=== PATIENT | female | born 1970 ===

== ENCOUNTER 2021-01-25 20:37 | Emergency (ER) | payer SELFPAY ==
--- NOTE | 2021-01-25 20:58 | EDM.PDOC ---
<Hilario Landers - Last Filed: 01/26/21 00:51> ED HPI GENERAL MEDICAL PROBLEM - General Chief Complaint: Chest Pain Stated Complaint: CHEST PAINS Time Seen by Provider: 01/25/21 20:45 Source of Information: Reports: Patient History Limitations: Reports: No Limitations - History of Present Illness INITIAL COMMENTS - FREE TEXT/NARRATIVE: Patient is a 50-year-old female who presents today for shortness of breath. She was diagnosed with Covid on Sunday and states that today she became more short of breath. EMS arrived she was satting 70% on room air. They put her on 4 L and she improved to the mid 90s. Here we had on 4 L and she became hypoxic again down to the 80s she had to be placed on a nonrebreather that improved to 100%. She reports some chest pain tonight. The pain is not radiated not any worse or better with anything she denies any nausea vomiting abdominal pain. 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: Reports: IV/IO, Oxygen, Other (see below) Other 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: 324 asa, 4 mg zofran, 250 mL NS Middle Chest Pain Score (Numeric/FACES): 8 - Related Data Allergies Allergy/AdvReac Type Severity Reaction Status Date / Time No Known Allergies Allergy Verified 01/26/21 10:59 Home Meds: Home Meds ALPRAZolam [Alprazolam] 0.5 mg PO TID PRN 01/26/21 [History] Citalopram Hydrobromide [Celexa] 40 mg PO DAILY 01/26/21 [History] Zaleplon 10 mg PO BEDTIME PRN 01/26/21 [History] buPROPion HCL [Bupropion Xl] 300 mg PO DAILY 01/26/21 [History] Social & Family History - Tobacco Use Tobacco Use Status *Q: Never Tobacco User Second Hand Smoke Exposure: No - Recreational Drug Use Recreational Drug Use: No ED ROS GENERAL - Review of Systems Review Of Systems: See Below Constitutional: Reports: Fatigue HEENT: Reports: No Symptoms Respiratory: Reports: Shortness of Breath, Cough Cardiovascular: Reports: No Symptoms Endocrine: Reports: No Symptoms GI/Abdominal: Reports: No Symptoms : Reports: No Symptoms Musculoskeletal: Reports: No Symptoms Skin: Reports: No Symptoms Neurological: Reports: No Symptoms Psychiatric: Reports: No Symptoms Hematologic/Lymphatic: Reports: No Symptoms Immunologic: Reports: No Symptoms ED EXAM, GENERAL - Physical Exam Exam: See Below Exam Limited By: No Limitations General Appearance: Alert, WD/WN, No Apparent Distress Eye Exam: Bilateral Eye: EOMI, PERRL Ears: Normal External Exam Throat/Mouth: Normal Inspection Head: Atraumatic Neck: Normal Inspection Respiratory/Chest: No Respiratory Distress, Lungs Clear, Normal Breath Sounds Cardiovascular: Normal Peripheral Pulses, Regular Rate, Rhythm, No Edema Back Exam: Normal Inspection Extremities: Normal Inspection Neurological: Alert, Oriented, Normal Cognition, Normal Gait Psychiatric: Normal Affect #1 Interpretation EKG Date: 01/25/21 Time: 20:32 Rhythm: NSR Rate (Beats/Min): 90 ST-T: Normal Course - Re-Assessments/Exams Free Text/Narrative Re-Assessment/Exam: 01/26/21 00:51 CT shows no pulmonary emboli. Patient had to be placed on BiPAP but she again desatted on a nonrebreather. Again there are no beds we will continue to call all over the state as well as rest the country and no one has any beds available. Patient is being maintained well on a BiPAP sat 97%. Departure - Departure Time of Disposition: 00:52 Disposition: DC/Tfer to Acute Hospital 02 Condition: Fair Clinical Impression: Hypoxia, COVID-19 - Discharge Information Referrals: PCP,None [Primary Care Provider] - Forms: ED Department Discharge Critical Care Note - Critical Care Note Total Time (mins): 75 Comments: Critical Care Procedure Note Authorized and Performed by: Dr. Landers Total critical care time: Approximately Due to a high probability of clinically significant, life threatening deterioration, the patient required my highest level of preparedness to intervene emergently and I personally spent this critical care time directly and personally managing the patient. This critical care time included obtaining a history; examining the patient; pulse oximetry; ordering and review of studies; arranging urgent treatment with development of a management plan; evaluation of patient's response to treatment; frequent reassessment; and, discussions with other providers. This critical care time was performed to assess and manage the high probability of imminent, life-threatening deterioration that could result in multi-organ failure. It was exclusive of separately billable procedures and treating other patients and teaching time. Sepsis Event Note (ED) - Evaluation Sepsis Screening Result: No Definite Risk - Assessment/Plan Plan: Patient is a 50-year-old female brought in today for hypoxia. Patient is Covid positive found on Sunday. She had worsening symptoms. Patient was satting 70% on room air was placed on nonrebreather now satting 100%. Will obtain x-ray EKG labs. Patient will likely require admission however due to the current pandemic bed availability is limited. We have no available beds here at this hospital and we called the transfer center and there are no beds available in the state and no other states or taking any other [id number] Covid patients. Patient lillian yao remain in the ER. <Coy Brower - Last Filed: 01/26/21 18:21> Course - Vital Signs Last Recorded V/S: Last Vital Signs Temp 99.3 F 01/25/21 23:51 Pulse 104 H 01/26/21 17:10 Resp 18 01/26/21 01:34 BP 110/59 L 01/26/21 17:10 Pulse Ox 94 L 01/26/21 17:12 - Orders/Labs/Meds Orders: Active Orders 24 hr Category Date Time Status RT Aerosol Therapy [RC] ASDIRECTED Care 01/25/21 21:20 Active BILIRUBIN DIRECT [CHEM] DAILY Lab 01/27/21 07:15 Ordered BILIRUBIN DIRECT [CHEM] DAILY Lab 01/28/21 07:15 Ordered BILIRUBIN DIRECT [CHEM] DAILY Lab 01/29/21 07:15 Ordered BILIRUBIN DIRECT [CHEM] DAILY Lab 01/30/21 07:15 Ordered COMPREHENSIVE METABOLIC PN,CMP [CHEM] DAILY Lab 01/27/21 07:15 Ordered COMPREHENSIVE METABOLIC PN,CMP [CHEM] DAILY Lab 01/28/21 07:15 Ordered COMPREHENSIVE METABOLIC PN,CMP [CHEM] DAILY Lab 01/29/21 07:15 Ordered COMPREHENSIVE METABOLIC PN,CMP [CHEM] DAILY Lab 01/30/21 07:15 Ordered BiPAP [RESPCARE] Stat Oth 01/25/21 23:41 Active Labs: Laboratory Tests 01/25/21 01/25/21 01/25/21 Range/Units 20:35 20:35 20:35 WBC 4.40 (4.0-11.0) K/uL RBC 3.91 L (4.30-5.90) M/uL Hgb 12.7 (12.0-16.0) g/dL Hct 36.7 (36.0-46.0) % MCV 93.9 (80.0-98.0) fL MCH 32.5 H (27.0-32.0) pg MCHC 34.6 (31.0-37.0) g/dL RDW Std Deviation 45.2 (28.0-62.0) fl RDW Coeff of Theo 13 (11.0-15.0) % Plt Count 225 (150-400) K/uL MPV 9.90 (7.40-12.00) fL Add Manual Diff YES Neutrophils % (Manual) 68 (48.0-80.0) % Band Neutrophils % 12 % Lymphocytes % (Manual) 13 L (16.0-40.0) % Monocytes % (Manual) 5 (0.0-15.0) % Eosinophils % (Manual) 1 (0.0-7.0) % Basophils % (Manual) 1 (0.0-1.5) % Nucleated RBC % 0.0 /100WBC Absolute Seg Neuts 3.0 (1.4-5.7) Band Neutrophils # 0.5 Lymphocytes # (Manual) 0.6 (0.6-2.4) Monocytes # (Manual) 0.2 (0.0-0.8) Eosinophils # (Manual) 0.0 (0.0-0.7) Basophils # (Manual) 0.0 (0.0-0.1) Nucleated RBCs # 0 K/uL INR APTT (18.6-31.3) SEC D-Dimer, Quantitative (0.0-0.50) mg/L FEU Sodium 143 (136-145) mmol/L Potassium 3.5 (3.5-5.1) mmol/L Chloride 105 (98-107) mmol/L Carbon Dioxide 23.5 (21.0-32.0) mmol/L BUN 15 (7.0-18.0) mg/dL Creatinine 1.3 H (0.6-1.0) mg/dL Est Cr Clr Drug Dosing 53.50 mL/min Estimated GFR (MDRD) 43.2 ml/min Glucose 91 (74-106) mg/dL Lactic Acid 1.5 (0.4-2.0) mmol/L Calcium 7.6 L (8.5-10.1) mg/dL Phosphorus 3.4 (2.6-4.7) mg/dL Magnesium 1.9 (1.8-2.4) mg/dL Total Bilirubin 0.3 (0.2-1.0) mg/dL Direct Bilirubin (0.0-0.5) mg/dL AST 147 H (15-37) IU/L ALT 143 H (14-63) IU/L Alkaline Phosphatase 87 (46-116) U/L Creatine Kinase 45 (26-308) U/L Troponin I < 0.050 (0.000-0.056) ng/mL Total Protein 6.7 (6.4-8.2) g/dL Albumin 2.4 L (3.4-5.0) g/dL Globulin 4.3 H (2.6-4.0) g/dL Albumin/Globulin Ratio 0.6 L (0.9-1.6) Lipase 28 L (73-393) U/L 01/25/21 01/26/21 Range/Units 20:35 07:40 WBC (4.0-11.0) K/uL RBC (4.30-5.90) M/uL Hgb (12.0-16.0) g/dL Hct (36.0-46.0) % MCV (80.0-98.0) fL MCH (27.0-32.0) pg MCHC (31.0-37.0) g/dL RDW Std Deviation (28.0-62.0) fl RDW Coeff of Theo (11.0-15.0) % Plt Count (150-400) K/uL MPV (7.40-12.00) fL Add Manual Diff Neutrophils % (Manual) (48.0-80.0) % Band Neutrophils % % Lymphocytes % (Manual) (16.0-40.0) % Monocytes % (Manual) (0.0-15.0) % Eosinophils % (Manual) (0.0-7.0) % Basophils % (Manual) (0.0-1.5) % Nucleated RBC % /100WBC Absolute Seg Neuts (1.4-5.7) Band Neutrophils # Lymphocytes # (Manual) (0.6-2.4) Monocytes # (Manual) (0.0-0.8) Eosinophils # (Manual) (0.0-0.7) Basophils # (Manual) (0.0-0.1) Nucleated RBCs # K/uL INR 0.99 APTT 38.1 H (18.6-31.3) SEC D-Dimer, Quantitative 1.58 H (0.0-0.50) mg/L FEU Sodium 143 (136-145) mmol/L Potassium 4.0 (3.5-5.1) mmol/L Chloride 108 H (98-107) mmol/L Carbon Dioxide 19.7 L (21.0-32.0) mmol/L BUN 11 (7.0-18.0) mg/dL Creatinine 0.8 (0.6-1.0) mg/dL Est Cr Clr Drug Dosing 86.94 mL/min Estimated GFR (MDRD) > 60.0 ml/min Glucose 141 H (74-106) mg/dL Lactic Acid (0.4-2.0) mmol/L Calcium 7.1 L (8.5-10.1) mg/dL Phosphorus (2.6-4.7) mg/dL Magnesium (1.8-2.4) mg/dL Total Bilirubin 0.2 (0.2-1.0) mg/dL Direct Bilirubin 0.10 (0.0-0.5) mg/dL AST 140 H (15-37) IU/L ALT 134 H (14-63) IU/L Alkaline Phosphatase 98 (46-116) U/L Creatine Kinase (26-308) U/L Troponin I (0.000-0.056) ng/mL Total Protein 5.7 L (6.4-8.2) g/dL Albumin 2.2 L (3.4-5.0) g/dL Globulin 3.5 (2.6-4.0) g/dL Albumin/Globulin Ratio 0.6 L (0.9-1.6) Lipase (73-393) U/L Meds: Medications Discontinued Medications Generic Name Dose Route Start Last Admin Trade Name Freq PRN Reason Stop Dose Admin Albuterol/Ipratropium 3 ml 01/25/21 21:20 01/25/21 21:29 Albuterol/Ipratropium 3.0-0.5 Mg/3 Ml Neb Soln NEB 01/25/21 21:21 3 ml ONETIME ONE Administration Dexamethasone Confirm 01/25/21 21:24 01/25/21 21:32 Dexamethasone 10 Mg/Ml Sdv Administered 01/25/21 21:25 Not Given Dose 10 mg .ROUTE .STK-MED ONE Dexamethasone 10 mg 01/25/21 21:29 01/25/21 21:32 Dexamethasone 10 Mg/Ml Sdv IVPUSH 01/25/21 21:30 10 mg ONETIME ONE Administration Sodium Chloride 1,000 mls @ 999 mls/hr 01/25/21 21:01 01/25/21 21:04 Normal Saline IV 01/25/21 22:01 999 mls/hr .Bolus ONE Administration Sodium Chloride 1,000 mls @ 999 mls/hr 01/25/21 21:48 01/25/21 21:51 Normal Saline IV 01/25/21 22:48 999 mls/hr .Bolus ONE Administration Remdesivir 200 mg/ Sodium 250 mls @ 250 mls/hr 01/26/21 07:08 01/26/21 07:10 Chloride IV 01/26/21 07:09 250 mls/hr ONETIME ONE Administration Iopamidol 50 ml 01/25/21 22:50 Iopamidol 755 Mg/Ml 500 Ml Multipack Bottle IVPUSH 01/25/21 22:51 ONETIME STA Iopamidol 75 ml 01/25/21 22:51 Iopamidol 755 Mg/Ml 500 Ml Multipack Bottle IVPUSH 01/25/21 22:52 ONETIME STA Ketorolac Tromethamine 30 mg 01/26/21 01:01 01/26/21 01:09 Ketorolac 30 Mg/Ml Sdv IVPUSH 01/26/21 01:02 30 mg ONETIME ONE Administration Morphine Sulfate 4 mg 01/26/21 10:22 01/26/21 10:37 Morphine 4 Mg/Ml Syringe IVPUSH 01/26/21 10:23 4 mg ONETIME ONE Administration Ondansetron HCl 4 mg 01/26/21 01:00 01/26/21 01:08 Ondansetron 4 Mg/2 Ml Sdv IVPUSH 01/26/21 01:01 4 mg ONETIME ONE Administration - Re-Assessments/Exams Free Text/Narrative Re-Assessment/Exam: 01/26/21 10:52 call placed to [facility], they are at capacity 01/26/21 10:[address] [facility], they are at capacity. 01/26/21 10:54 call placed to [facility], they are at capacity. 01/26/21 11:03 calls placed to [place] at [facility]; [place], [place], there are all at capacity. Patient is tolerating BiPAP at 12/5, 100%, satting 90%. 01/26/21 16:45 patient is satting appropriately on 50 L FiO2 on high flow nasal cannula. Case discussed with Dr. Sterling at [facility], with accept transfer. 01/26/21 18:21 patient now placed back on BiPAP 12/8, 100%, satting 98%. Sepsis Event Note (ED) - Focused Exam Vital Signs: Vital Signs Pulse BP Pulse Ox 01/26/21 17:12 94 L 01/26/21 17:10 104 H 110/59 L 75 L 01/26/21 16:06 93 L 01/26/21 16:00 96 117/74 93 L 01/26/21 15:14 98 101/66 95 01/26/21 14:00 98 126/72 90 L 01/26/21 13:00 93 124/69 99 01/26/21 12:00 91 131/74 97 01/26/21 11:00 95 123/69 95 01/26/21 10:15 92 116/57 L 95 01/26/21 09:00 92 122/68 93 L 01/26/21 08:00 87 96 01/26/21 07:54 71 108/71 98
[2021-01-25] MEDS ORDERED: Sodium Chloride 0.9% 1,000 ML IV ONE ×2 (21:01→21:48)
[2021-01-25 21:10] LABS: BLOOD UREA NITROGEN,BUN 15 mg/dL (7.0-18.0); CARBON DIOXIDE,CO2 23.5 mmol/L (21.0-32.0); CHLORIDE,CL 105 mmol/L (98-107); GLUCOSE RANDOM 91 mg/dL (74-106); LIPASE 28 U/L (73-393); POTASSIUM,K 3.5 mmol/L (3.5-5.1); SODIUM,NA 143 mmol/L (136-145)
[2021-01-25] MEDS ORDERED: Albuterol/Ipratropium 3.0-0.5 MG/3 ML Neb Soln NEB ONE (21:20)
[2021-01-25] MEDS ORDERED: Dexamethasone 10 MG/ML SDV ONE (21:24)
[2021-01-25] MEDS ORDERED: Dexamethasone 10 MG/ML SDV IVPUSH ONE (21:29)
--- NOTE | 2021-01-25 21:34 | CR ---
HISTORY: Hypoxia. COVID-19 positive. COMPARISON: None available FINDINGS: A portable erect AP view of the chest was obtained at 21 0 2 hours. There are moderate ground-glass pulmonary infiltrates throughout both lungs, with relative sparing of the right upper lobe. There is a lenticular area of sparing in the right midlung, probably adjacent to the minor fissure in the right lower lobe. The findings are consistent with moderate COVID-19 pneumonia. No definite pleural effusions are seen. The heart is normal in size. The mediastinum is normal in appearance. The osseous structures are normal in appearance for the patient`s age. IMPRESSION: Moderate ground-glass interstitial infiltrates scattered throughout both lungs, more prominent on the left than the right, consistent with moderate COVID-19 pneumonia. Dictated by Isaias Basilio MD @ 01/25/2021 9:33:40 PM (Electronically Signed)
[2021-01-25] MEDS ORDERED: Iopamidol 755 MG/ML 500 ML Multipack Bottle IVPUSH STA ×2 (22:50→22:51)
--- NOTE | 2021-01-25 23:42 | CT ---
INDICATION: Hypoxia. Positive for COVID-19. Elevated D-dimer. COMPARISON: Chest radiograph from earlier this evening. TECHNIQUE: CT examination of the chest was performed with the uneventful intravenous administration of 125 cc of Isovue 370 while 1.0 and 1.5 mm thick axial sections were obtained through the pulmonary arteries. Please note that all CT scans at this facility use dose modulation, iterative reconstruction, and/or weight-based dosing when appropriate to reduce radiation dose to as low as reasonably achievable. FINDINGS: : There is no sign of pulmonary embolism, with normal enhancement and branching of the pulmonary arteries. There is extensive ground-glass pulmonary infiltrate throughout the majority of the left lung, with relative sparing of the left apex. There is moderate crazy paving infiltrate with dense consolidation in the posterior left lower lobe. On the right, there is moderate patchy moderately dense ground-glass infiltrate in the posterior right upper lobe. There is moderate perihilar and posterior peripheral crazy paving infiltrate in the right lower lobe. The findings are that of prominent mid stage COVID-19 pneumonia. There is a tiny right pleural effusion. There is no sign of a pleural effusion on the left. There is no sign of mediastinal or hilar mass or adenopathy. The heart is normal in appearance for the patient`s age. There is age appropriate appearance of the thoracic aorta and ascending great vessels. There is no sign of supraclavicular or axillary mass or adenopathy. Bilateral breast prostheses are present with no sign of any leak. The visualized superior liver, spleen, pancreas, kidneys, and adrenals are normal in appearance. The osseous structures are normal in appearance for the patient`s age. IMPRESSION: No sign of pulmonary embolism. Moderate mid stage COVID-19 pneumonia, with more prominent involvement of the left lung than the right. There is more prominent involvement of the lower lobes than elsewhere. Please note that all CT scans at this facility use dose modulation, iterative reconstruction, and/or weight-based dosing when appropriate to reduce radiation dose to as low as reasonably achievable. Dictated by Isaias Basilio MD @ 01/25/2021 11:41:33 PM (Electronically Signed)
[2021-01-26] MEDS ORDERED: Ondansetron 4 MG/2 ML SDV IVPUSH ONE (01:00)
[2021-01-26] MEDS ORDERED: Ketorolac 30 MG/ML SDV IVPUSH ONE (01:01)
[2021-01-26] MEDS ORDERED: REMDESIVIR 200 MG in Sodium Chloride 0.9% 250 ML IV ONE (07:08)
[2021-01-26 08:19] LABS: BLOOD UREA NITROGEN,BUN 11 mg/dL (7.0-18.0); CARBON DIOXIDE,CO2 19.7 mmol/L (21.0-32.0); CHLORIDE,CL 108 mmol/L (98-107); GLUCOSE RANDOM 141 mg/dL (74-106); SODIUM,NA 143 mmol/L (136-145)
[2021-01-26] MEDS ORDERED: Morphine 4 MG/ML Syringe IVPUSH ONE (10:22)
== END 2021-01-26 19:11 ==
LOC: MW.ED 20:37
DX: U07.1 COVID-19 (principal); R09.02 Hypoxemia
CPT/HCPCS: 36415; 71045; 71275; 80053; 82248; 82550; 83605; 83690; 83735; 84100; 84484; 85025; 85379; 85610; 85730; 87040; 93005; 94660; 96374; 96375; 99291; J1100; J1885; J2270; J2405; J7030; J7050; 99285-25; 99292; J7620-GY